=== PATIENT | female | born 1990 | race Caucasian/White ===

== ENCOUNTER 2021-10-05 09:20 | Emergency (ER) | payer OTHER ==
[2021-10-05 09:34] VITALS: BP 130/73; PULSE 94; TEMP 97.7; BMI 21.4
[2021-10-05 10:40] LABS: HCG,QUALITATIVE URINE Positive
[2021-10-05 10:45] LABS: EPI CELLS 14 /uL (0-25.1); HYALINE CASTS 0 /uL (0-3.1); URINE APPEARANCE CLEAR; URINE BACTERIA 64 /uL (0-1359); URINE BILIRUBIN NEGATIVE (NEGATIVE); URINE COLOR YELLOW; URINE GLUCOSE (UA) NEGATIVE (NEGATIVE); URINE KETONE NEGATIVE (NEGATIVE); URINE LEUK ESTERASE TRACE (NEGATIVE); URINE NITRITE NEGATIVE (NEGATIVE); URINE PROTEIN NEGATIVE (NEGATIVE); URINE RBC 8 /uL (0-23.9); URINE UROBILINOGEN 0.2 mg/dL (0.2-1.0); URINE WBC 9 /uL (0-25.8)
== END 2021-10-05 15:25 | disposition home or self-care (01) ==
LOC: JER 09:20
DX: O26.892 Other specified pregnancy related conditions, second trimester (principal); R10.9 Unspecified abdominal pain; Z3A.15 15 weeks gestation of pregnancy
CPT/HCPCS: 36415; 76801-TC; 81003; 84702; 84703; 87086; 99284-25

== ENCOUNTER 2022-03-23 02:45 | Inpatient (IN) | payer OTHER ==
[2022-03-23] MEDS ORDERED: BUTORPHANOL TARTRATE 1 MG/ML VIAL IVPUSH PRN (03:20)
[2022-03-23] MEDS ORDERED: PROMETHAZINE HCL 25 MG/1 ML VIAL IVPUSH ONE (03:20)
[2022-03-23] MEDS ORDERED: OXYTOCIN 30 UNITS in 0.9% NS 30 UNIT/500 ML INFUS.BAG IVPB SCH (03:30)
[2022-03-23] MEDS: DEXTROSE 5%-LACTATED RINGERS 1,000 ML IV SCH ×2 (04:00→10:15)
[2022-03-23 04:50] LABS: BASO % 0.6 % (0-2.0); EOS % 1.5 % (0-4.5); HEMOGLOBIN 12.4 GM/dL (10.7-15.3); LYMPH % 23.4 % (8-40); MCH 32.1 pg (25.7-33.7); MCHC 35.4 g/dl (32.0-36.0); MEAN CELL VOLUME 90.7 fl (80-96); MEAN PLT VOLUME 8.4 fl (7.5-11.1); MONO % 7.6 % (3.8-10.2); NEUT % 66.9 % (42.8-82.8); PLATELET COUNT 250 10^3/uL (134-434); RBC 3.86 M/mm3 (3.60-5.2); RDW 13.5 % (11.6-15.6); WHITE BLOOD COUNT 10.3 K/mm3 (4.0-10.0)
[2022-03-23 05:04] LABS: INR 0.91 (0.83-1.09); PROTHROMBIN TIME (PATIENT) 10.5 SEC (9.7-13.0)
[2022-03-23 05:07] LABS: ACTIVATED PTT 25.9 SECONDS (25.2-36.5)
[2022-03-23 05:19] LABS: CREATININE 0.5 mg/dL (0.55-1.3)
[2022-03-23 06:00] VITALS: BMI 25.8
[2022-03-23] MEDS ORDERED: FENTANYL/BUPIVACAINE/NS/PF - PCEA - 50 ML DISP.SYRIN EP ONE (11:46)
[2022-03-23] MEDS: ELECTROLYTE-148 SOLN 1,000 ML IV SCH ×3 (12:00→15:00)
[2022-03-23] MEDS ORDERED: NALOXONE HCL 0.4 MG/ML VIAL IVPUSH PRN (12:41)
[2022-03-23] MEDS ORDERED: FENTANYL/BUPIVACAINE/NS/PF - PCEA - 50 ML DISP.SYRIN EP SCH (12:45)
[2022-03-23] MEDS ORDERED: OXYTOCIN 30 UNITS in 0.9% NS 30 UNIT/500 ML INFUS.BAG IVPB ONE (16:06)
[2022-03-23] MEDS ORDERED: LIDO 2%/EPI 1:200000 PRESRVFRE (20 ML SDVIAL) ONE (16:06)
[2022-03-23] MEDS ORDERED: morphine SULFATE/PF 1 MG/2 ML (2cc Syringe - QUVA) EP ONE (16:15)
[2022-03-23] MEDS ORDERED: PHENYLEPHRINE HCL 10 MG/1 ML SINGLE DOSE VIAL ONE ×2 (16:19→16:21)
[2022-03-23] MEDS ORDERED: ePHEDrine SULFATE 50 MG/1 ML AMPULE ONE (16:21)
[2022-03-23] MEDS ORDERED: METOCLOPRAMIDE HCL INJECTION 10 MG/2 ML VIAL ONE (16:30)
[2022-03-23] MEDS ORDERED: KETOROLAC TROMETHAMINE 30 MG/1 ML VIAL ONE (16:30)
[2022-03-23] MEDS ORDERED: ONDANSETRON 4 MG/2 ML VIAL ONE (16:30)
[2022-03-23] MEDS ORDERED: ceFAZolin SODIUM 1 GM VIAL ONE (16:30)
[2022-03-23] MEDS ORDERED: METHYLERGONOVINE MALEATE 0.2 MG/1 ML AMP IM PRN (17:02)
[2022-03-23] MEDS ORDERED: OXYTOCIN 20 UNITS in 0.9% NS 20 UNIT/1,000 ML INFUS.BAG IV ONE (17:13)
[2022-03-23] MEDS: OXYTOCIN 20 UNITS in 0.9% NS 20 UNIT/1,000 ML INFUS.BAG IV SCH (17:15)
[2022-03-23 17:16] LABS: CORD BASE EXCESS -5.3 mmol/L (0-2); CORD HCO3 21.2 mmHg (20-29); CORD PCO2 44.7 mmHg (30-78); CORD pH 7.293 (7.14-7.44)
[2022-03-23] MEDS ORDERED: ONDANSETRON 4 MG/2 ML VIAL IVPUSH PRN (17:20)
[2022-03-23 17:21] LABS: CORD PCO2 59.7 mmHg (30-78); CORD pH 7.222 (7.14-7.44)
[2022-03-23] MEDS: IBUPROFEN 800 MG/8 ML IJ IVPB PRN (19:14)
[2022-03-24] MEDS: OXYTOCIN 20 UNITS in 0.9% NS 20 UNIT/1,000 ML INFUS.BAG IV SCH (04:30)
[2022-03-24] MEDS ORDERED: oxyCODONE HCL 5 MG TABLET PO PRN ×2 (05:02)
[2022-03-24] MEDS: IBUPROFEN 800 MG/8 ML IJ IVPB PRN (08:52)
[2022-03-24 08:53] LABS: BASO % 0.3 % (0-2.0); EOS % 0.4 % (0-4.5); LYMPH % 11.4 % (8-40); MCH 32.2 pg (25.7-33.7); MCHC 35.3 g/dl (32.0-36.0); MEAN CELL VOLUME 91.1 fl (80-96); MEAN PLT VOLUME 8.2 fl (7.5-11.1); MONO % 7.7 % (3.8-10.2); NEUT % 80.2 % (42.8-82.8); PLATELET COUNT 215 10^3/uL (134-434); RBC 3.41 M/mm3 (3.60-5.2); RDW 13.4 % (11.6-15.6); WHITE BLOOD COUNT 13.3 K/mm3 (4.0-10.0)
[2022-03-24] MEDS: IBUPROFEN 600 MG TABLET (FP) PO PRN ×2 (14:28→18:38)
[2022-03-24] MEDS ORDERED: BISACODYL 10 MG SUPP.RECT RC PRN (17:02)
[2022-03-24] MEDS: ACETAMINOPHEN 325 MG TABLET (FP) PO PRN (18:13)
[2022-03-24] MEDS: ENOXAPARIN NA (PORCINE) 40 MG/0.4 ML DISP.SYRIN SQ SCH (18:38)
[2022-03-25] MEDS: IBUPROFEN 600 MG TABLET (FP) PO PRN ×4 (05:50→22:53)
[2022-03-25] MEDS: ACETAMINOPHEN 325 MG TABLET (FP) PO PRN ×3 (08:27→20:54)
[2022-03-25] MEDS: ENOXAPARIN NA (PORCINE) 40 MG/0.4 ML DISP.SYRIN SQ SCH (10:01)
[2022-03-25] MEDS: SIMETHICONE 80 MG TAB.CHEW (FP) PO PRN ×2 (10:01→20:55)
[2022-03-26] MEDS: IBUPROFEN 600 MG TABLET (FP) PO PRN (05:17)
[2022-03-26] MEDS: SIMETHICONE 80 MG TAB.CHEW (FP) PO PRN (05:18)
[2022-03-26 09:40] LABS: BASO % 0.7 % (0-2.0); EOS % 2.7 % (0-4.5); HEMATOCRIT 33.7 % (32.4-45.2); HEMOGLOBIN 11.4 GM/dL (10.7-15.3); LYMPH % 16.9 % (8-40); MCHC 33.7 g/dl (32.0-36.0); MEAN PLT VOLUME 7.9 fl (7.5-11.1); MONO % 5.1 % (3.8-10.2); NEUT % 74.6 % (42.8-82.8); PLATELET COUNT 298 10^3/uL (134-434); RBC 3.67 M/mm3 (3.60-5.2); RDW 13.6 % (11.6-15.6); WHITE BLOOD COUNT 9.8 K/mm3 (4.0-10.0)
[2022-03-26] MEDS: ENOXAPARIN NA (PORCINE) 40 MG/0.4 ML DISP.SYRIN SQ SCH (10:58)
[2022-03-26 11:18] VITALS: BP 116/72; PULSE 68; RESP 18
[2022-03-26 11:57] VITALS: TEMP 97.7
== END 2022-03-26 13:00 | disposition home or self-care (01) | DRG 788 ==
LOC: JLDR 02:45 → J3W 18:20
PROVIDERS: ADMIT Obstetrics & Gynecology; ATTEND Obstetrics & Gynecology
PROC: 10D00Z1 Extraction of Products of Conception, Low, Open Approach (ICD-10-PCS; principal; 2022-03-23)
PROC: 3E033VJ Introduction of Other Hormone into Peripheral Vein, Percutaneous Approach (ICD-10-PCS; 2022-03-23)
DX: O42.02 Full-term premature rupture of membranes, onset of labor within 24 hours of rupture (principal); O62.0 Primary inadequate contractions; O61.0 Failed medical induction of labor; Z3A.39 39 weeks gestation of pregnancy; Z37.0 Single live birth
CPT/HCPCS: 36415; 36600; 80048; 82803; 85025; 85461; 85610; 85730; 86780; 86850; 86870; 86900; 86901; 86902; 86999; 88307-TC; C9803-CS; U0003; U0005

== ENCOUNTER 2024-07-24 01:52 | Emergency (ER) | payer BC, OTHER ==
[2024-07-24 02:01] VITALS: BMI 21.7
[2024-07-24 03:18] LABS: BASO % 0.4 % (0-2.0); EOS % 1.8 % (0-4.5); HEMATOCRIT 33.9 % (32.4-45.2); HEMOGLOBIN 11.7 GM/dL (10.7-15.3); LYMPH % 29.2 % (8-40); MCH 29.5 pg (25.7-33.7); MCHC 34.4 g/dl (32.0-36.0); MEAN CELL VOLUME 85.8 fl (80-96); MONO % 6.2 % (3.8-10.2); NEUT % 62.4 % (42.8-82.8); PLATELET COUNT 221 10^3/uL (134-434); RBC 3.95 M/mm3 (3.60-5.2); RDW 12.9 % (11.6-15.6); WHITE BLOOD COUNT 7.5 K/mm3 (4.0-10.0)
[2024-07-24 06:48] VITALS: BP 103/56; PULSE 75; RESP 18; TEMP 98.4
[2024-07-24] MEDS: RHO(D) IMMUNE GLOBULIN 1,500 UNIT DISP.SYRIN IM ONE (09:00)
== END 2024-07-24 11:00 | disposition home or self-care (01) ==
LOC: JER 01:52
PROC: 3E023GC Introduction of Other Therapeutic Substance into Muscle, Percutaneous Approach (ICD-10-PCS; principal; 2024-07-24)
DX: O09.522 Supervision of elderly multigravida, second trimester (principal); O20.9 Hemorrhage in early pregnancy, unspecified; Z3A.14 14 weeks gestation of pregnancy
CPT/HCPCS: 36415; 76801-TC; 84702; 85025; 86850; 86900; 86901; 96372; 99285-25; J2790

== ENCOUNTER 2024-10-08 17:50 | Inpatient (IN) | payer BC ==
[2024-10-08 18:39] VITALS: RESP 18
[2024-10-08] MEDS: LACTATED RINGERS SOLUTION 1,000 ML IV ONE (19:15)
[2024-10-08 19:40] LABS: URINE APPEARANCE CLEAR; URINE BILIRUBIN NEGATIVE (NEGATIVE); URINE COLOR YELLOW; URINE GLUCOSE (UA) NEGATIVE (NEGATIVE); URINE KETONE NEGATIVE (NEGATIVE); URINE LEUK ESTERASE NEGATIVE (NEGATIVE); URINE NITRITE NEGATIVE (NEGATIVE); URINE PROTEIN NEGATIVE (NEGATIVE); URINE UROBILINOGEN 0.2 mg/dL (0.2-1.0)
[2024-10-08] MEDS ORDERED: MAGNESIUM 4GM/H20 - 4 GM/100 ML IVPB IVPB ONE (22:23)
[2024-10-08] MEDS: MAGNESIUM 4GM/H20 - 4 GM/100 ML IVPB IVPB ONE (22:28)
[2024-10-08 22:43] LABS: ABSOLUTE IMMATURE GRANULOCYTES 0.06 x10^3/uL (0.0-0.031); BASOPHILS # 0.07 x10^3/uL (0.01-0.08); EOSINOPHIL % 1.9 % (0.7-5.8); EOSINOPHILS # 0.22 x10^3/uL (0.04-0.36); HEMATOCRIT 35.9 % (34.1-44.9); MCHC 33.4 g/dl (32.2-35.5); MEAN CELL VOLUME 89.8 fl (79.4-94.8); MEAN PLT VOLUME 9.5 fl (9.4-12.3); MONOCYTE % 4.3 % (4.7-12.5); PLATELET COUNT 266 x10^3/uL (182-369); RDW 13.2 % (12.1-16.8)
[2024-10-08] MEDS ORDERED: BETAMET ACET/BETAMET NA PH 30 MG/5 ML VIAL ONE (22:48)
[2024-10-08 22:50] LABS: INR 0.94 (0.83-1.09); PROTHROMBIN TIME (PATIENT) 10.2 SEC (9.7-13.0)
[2024-10-08 22:53] LABS: ACTIVATED PTT 26.9 SECONDS (25.2-36.5)
[2024-10-08] MEDS ORDERED: MAGNESIUM SULFATE 20GM/500ML - 20 GM/500 ML INFUS.BAG ONE (22:57)
[2024-10-08] MEDS: MAGNESIUM SULFATE 20GM/500ML - 20 GM/500 ML INFUS.BAG IVPB SCH (23:00)
[2024-10-08 23:07] LABS: ALBUMIN 3.4 g/dl (3.4-5.0); BLOOD UREA NITROGEN 4.9 mg/dL (7-18); CALCIUM 9.6 mg/dL (8.5-10.1)
[2024-10-08 23:10] LABS: CREATININE 0.5 mg/dL (0.55-1.3)
[2024-10-08 23:12] LABS: BILIRUBIN,TOTAL 0.3 mg/dL (0.2-1); TOT PROT 6.7 g/dl (6.4-8.2)
[2024-10-08 23:34] LABS: HEPATITIS B SURFACE AG MATERN NON-REACTIVE (NONREACTIVE); SYPHILIS W/ RPR CONF NON-REACTIVE (NONREACTIVE)
[2024-10-08] MEDS: BETAMET ACET/BETAMET NA PH 30 MG/5 ML VIAL IM ONE (23:54)
[2024-10-09 00:02] LABS: HIV INTERPRETATION NEGATIVE (NEGATIVE)
[2024-10-09 00:03] LABS: HCV DIAGNOSTIC IN-HOUSE W/RFLX NON-REACTIVE (NONREACTIVE)
[2024-10-09 00:15] VITALS: BMI 23.6
[2024-10-09 00:58] VITALS: BP 111/67; PULSE 89; TEMP 97.3
== END 2024-10-09 00:09 | disposition short-term general hospital (02) | DRG 833 ==
LOC: JDEL 17:50 → JLDR 22:02
PROVIDERS: ADMIT Obstetrics & Gynecology; ATTEND Obstetrics & Gynecology
DX: O44.02 Complete placenta previa NOS or without hemorrhage, second trimester (principal); O34.219 Maternal care for unspecified type scar from previous cesarean delivery; Z3A.23 23 weeks gestation of pregnancy
CPT/HCPCS: 36415; 76801-TC; 76830-TC; 80053; 81003; 85025; 85610; 85730; 86780; 86803; 86850; 86870; 86880; 86900; 86901; 86902; 87086; 87340; 87389; 96372